=== PATIENT | male | born 1975 | race Caucasian/White ===

== ENCOUNTER 2019-12-06 01:49 | Emergency (ER) | payer SELFPAY ==
[2019-12-06] MEDS ORDERED: Alum Hydroxide/Mag Hydroxide 15 ML, Lidocaine 2% 15 ML PO ONE ×2 (02:01)
[2019-12-06] MEDS ORDERED: Sodium Chloride 0.9% 10 ML Syringe FLUSH PRN (02:27)
[2019-12-06] MEDS ORDERED: Ondansetron 4 MG/2 ML SDV IVPUSH ONE (02:29)
[2019-12-06] MEDS ORDERED: Sodium Chloride 0.9% 1,000 ML IV SCH (02:30)
[2019-12-06] MEDS ORDERED: Ketorolac 30 MG/ML SDV IVPUSH ONE (02:31)
[2019-12-06] MEDS ORDERED: Iopamidol 755 Mg/ML 100 ML Bottle IV ONE (03:10)
--- NOTE | 2019-12-06 04:39 | EDM.PDOC ---
ED HPI GENERAL MEDICAL PROBLEM - General Chief Complaint: Abdominal Pain Stated Complaint: Abdominal Pain Time Seen by Provider: 12/06/19 01:55 Source of Information: Reports: Patient History Limitations: Reports: No Limitations - History of Present Illness INITIAL COMMENTS - FREE TEXT/NARRATIVE: Patient presented to the ED because of diffuse abdominal pain. He said it all started 3 hours after his dinner. There is no nausea or vomiting. There is no cough or cold symptoms, fever, chills, N/V/D. - Related Data Allergies Allergy/AdvReac Type Severity Reaction Status Date / Time wheat dust Allergy watery eyes Uncoded 12/06/19 07:39 Home Meds: Home Meds NK [No Known Home Meds] 02/08/14 [History] ED ROS GENERAL - Review of Systems Review Of Systems: See Below Constitutional: Reports: No Symptoms HEENT: Reports: No Symptoms Respiratory: Reports: No Symptoms Cardiovascular: Reports: No Symptoms Endocrine: Reports: No Symptoms GI/Abdominal: Reports: No Symptoms, Abdominal Pain ED EXAM, GI/ABD - Physical Exam Exam: See Below Exam Limited By: No Limitations General Appearance: Alert, No Apparent Distress Ears: Normal External Exam, Normal Canal Nose: Normal Inspection, Normal Mucosa Throat/Mouth: Normal Inspection, Normal Lips Head: Atraumatic, Normocephalic Neck: Normal Inspection, Supple, Non-Tender Respiratory/Chest: No Respiratory Distress, Lungs Clear, Normal Breath Sounds, No Accessory Muscle Use Cardiovascular: Normal Peripheral Pulses, Regular Rate, Rhythm, No Edema GI/Abdominal Exam: Normal Bowel Sounds, Other (tenderness over the epigastric area) Course - Vital Signs Text/Narrative:: Labs/CT ab/pelvis was discussed with patient and verbalized full understanding NS 1 L bolus Toradol 30 mg IV x1 GI cocktail Last Recorded V/S: Last Vital Signs Temp 36.4 C 12/06/19 04:50 Pulse 76 12/06/19 04:50 Resp 16 12/06/19 04:50 BP 130/92 H 12/06/19 04:50 Pulse Ox 96 12/06/19 04:50 - Orders/Labs/Meds Orders: Active Orders 24 hr Category Date Time Status Abdomen Pelvis w Cont [CT] Stat Exams 12/06/19 02:27 Taken Saline Lock Insert [OM.PC] Routine Oth 12/06/19 02:27 Ordered Labs: Laboratory Tests 12/06/19 12/06/19 12/06/19 Range/Units 02:35 02:35 02:35 WBC 10.4 (4.5-12.0) X10-3/uL RBC 6.05 H (4.30-5.75) x10(6)uL Hgb 15.9 (13.5-17.8) g/dL Hct 49.5 (30.0-51.3) % MCV 81.8 (80-96) fL MCH 26.3 L (27.7-33.6) pg MCHC 32.2 (32.2-35.4) g/dL RDW 13.0 (11.5-15.5) % Plt Count 282 (125-369) X10(3)uL MPV 8.5 (7.4-10.4) fL Neut % (Auto) 65.9 (46-82) % Lymph % (Auto) 22.1 (13-37) % [place] % (Auto) 8.3 (4-12) % Eos % (Auto) 2 (1.0-5.0) % Baso % (Auto) 2 (0-2) % Neut # (Auto) 6.8 (1.6-8.3) # Lymph # (Auto) 2.3 (0.6-5.0) # [place] # (Auto) 0.9 (0.0-1.3) # Eos # (Auto) 0.2 (0.0-0.8) # Baso # (Auto) 0.2 (0.0-0.2) # Sodium 141 (135-145) mmol/L Potassium 4.2 (3.5-5.3) mmol/L Chloride 104 (100-110) mmol/L Carbon Dioxide 31 (21-32) mmol/L BUN 14 (7-18) mg/dL Creatinine 1.4 H (0.70-1.30) mg/dL Est Cr Clr Drug Dosing TNP Estimated GFR (MDRD) 55 L (>60) BUN/Creatinine Ratio 10.0 (9-20) Glucose 133 H (80-116) mg/dL Calcium 8.9 (8.6-10.2) mg/dL Total Bilirubin 0.3 (0.1-1.3) mg/dL AST 15 (5-25) IU/L ALT 50 H (12-36) U/L Alkaline Phosphatase 99 (56-112) IU/L Total Protein 8.0 (6.0-8.0) g/dL Albumin 3.5 (3.5-5.2) g/dL Globulin 4.5 g/dL Albumin/Globulin Ratio 0.8 Amylase 20 L (25-115) U/L Lipase 151 (73-393) U/L Urine Color (YELLOW) Urine Appearance (CLEAR) Urine pH (5.0-6.5) Ur Specific [place] (1.010-1.025) Urine Protein (NEGATIVE) mg/dL Urine Glucose (UA) (NORMAL) mg/dL Urine Ketones (NEGATIVE) mg/dL Urine Occult Blood (NEGATIVE) Urine Nitrite (NEGATIVE) Urine Bilirubin (NEGATIVE) Urine Urobilinogen (NEGATIVE) mg/dL Ur Leukocyte Esterase (NEGATIVE) Urine RBC (0-5) Urine WBC (0-5) Ur Squamous Epith Cells (NS,R,O) Urine Bacteria (NS) 12/06/19 Range/Units 03:45 WBC (4.5-12.0) X10-3/uL RBC (4.30-5.75) x10(6)uL Hgb (13.5-17.8) g/dL Hct (30.0-51.3) % MCV (80-96) fL MCH (27.7-33.6) pg MCHC (32.2-35.4) g/dL RDW (11.5-15.5) % Plt Count (125-369) X10(3)uL MPV (7.4-10.4) fL Neut % (Auto) (46-82) % Lymph % (Auto) (13-37) % [place] % (Auto) (4-12) % Eos % (Auto) (1.0-5.0) % Baso % (Auto) (0-2) % Neut # (Auto) (1.6-8.3) # Lymph # (Auto) (0.6-5.0) # [place] # (Auto) (0.0-1.3) # Eos # (Auto) (0.0-0.8) # Baso # (Auto) (0.0-0.2) # Sodium (135-145) mmol/L Potassium (3.5-5.3) mmol/L Chloride (100-110) mmol/L Carbon Dioxide (21-32) mmol/L BUN (7-18) mg/dL Creatinine (0.70-1.30) mg/dL Est Cr Clr Drug Dosing Estimated GFR (MDRD) (>60) BUN/Creatinine Ratio (9-20) Glucose (80-116) mg/dL Calcium (8.6-10.2) mg/dL Total Bilirubin (0.1-1.3) mg/dL AST (5-25) IU/L ALT (12-36) U/L Alkaline Phosphatase (56-112) IU/L Total Protein (6.0-8.0) g/dL Albumin (3.5-5.2) g/dL Globulin g/dL Albumin/Globulin Ratio Amylase (25-115) U/L Lipase (73-393) U/L Urine Color Yellow (YELLOW) Urine Appearance Clear (CLEAR) Urine pH 7.0 H (5.0-6.5) Ur Specific [place] 1.005 L (1.010-1.025) Urine Protein Negative (NEGATIVE) mg/dL Urine Glucose (UA) Normal (NORMAL) mg/dL Urine Ketones Negative (NEGATIVE) mg/dL Urine Occult Blood Moderate H (NEGATIVE) Urine Nitrite Negative (NEGATIVE) Urine Bilirubin Negative (NEGATIVE) Urine Urobilinogen Normal (NEGATIVE) mg/dL Ur Leukocyte Esterase Negative (NEGATIVE) Urine RBC 5-10 H (0-5) Urine WBC 0-5 (0-5) Ur Squamous Epith Cells Rare (NS,R,O) Urine Bacteria Occasional H (NS) Meds: Medications Discontinued Medications Generic Name Dose Route Start Last Admin Trade Name Freq PRN Reason Stop Dose Admin Al Hydroxide/Mg Hydroxide 15 0 ml 12/06/19 02:01 12/06/19 02:10 ml/ Lidocaine HCl 15 ml PO 12/06/19 02:02 15 ml ONETIME ONE Administration Sodium Chloride 1,000 mls @ 999 mls/hr 12/06/19 02:30 12/06/19 02:50 Normal Saline IV 999 mls/hr ASDIRECTED NITESH Administration Iopamidol 100 ml 12/06/19 03:10 12/06/19 03:27 Isovue-370 (76%) IV 12/06/19 03:11 100 ml . DIRECTED ONE Administration Ketorolac Tromethamine 30 mg 12/06/19 02:31 12/06/19 02:58 Toradol IVPUSH 12/06/19 02:32 30 mg ONETIME ONE Administration Ondansetron HCl 4 mg 12/06/19 02:29 12/06/19 02:54 Zofran IVPUSH 12/06/19 02:30 4 mg ONETIME ONE Administration Sodium Chloride 10 ml 12/06/19 02:27 Saline Flush FLUSH ASDIRECTED PRN Keep Vein Open Departure - Departure Time of Disposition: 04:35 Disposition: Home, Self-Care 01 Condition: Good Clinical Impression: Enteritis - Discharge Information Instructions: Viral Gastroenteritis, Adult, [id number] Referrals: Jennifer Pizarro NP [Primary Care Provider] - Forms: ED Department Discharge Additional Instructions: please read discharge instructions on enteritis frequent hand washing increase oral fluids you may take ibuprofen 800 mg with tylenol 1000 every 8 hours as needed for pain followu as needed Sepsis Event Note - Focused Exam Vital Signs: Vital Signs Temp Pulse Resp BP Pulse Ox 12/06/19 04:50 36.4 C 76 16 130/92 H 96 12/06/19 01:50 36.5 C 66 16 154/105 H 99 Date Exam was Performed: 12/06/19 Time Exam was Performed: 11:53 - My Orders Last 24 Hours: My Active Orders 12/06/19 02:27 Abdomen Pelvis w Cont [CT] Stat Saline Lock Insert [OM.PC] Routine - Assessment/Plan Last 24 Hours: My Active Orders 12/06/19 02:27 Abdomen Pelvis w Cont [CT] Stat Saline Lock Insert [OM.PC] Routine
== END 2019-12-06 05:20 | disposition home or self-care (01) ==
LOC: FB.ED 01:49
DX: K52.9 Noninfective gastroenteritis and colitis, unspecified (principal); Z91.018 Allergy to other foods
CPT/HCPCS: 36415; 74177; 80053; 81001; 82150; 83690; 85025; 96361; 96374; 96375; 99284; A9270; J1885; J2405; J7030; Q9967